=== PATIENT | female | born 1990 | race African-American/Black ===

== ENCOUNTER 2020-09-23 17:11 | Emergency (ER) | payer OTHER ==
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
[2020-09-23 18:34] LABS: APPEARANCE,URINE SLIGHTLY-CLOUDY; BILIRUBIN,URINE NEGATIVE (NEGATIVE); COLOR,URINE YELLOW; GLUCOSE, URINE NEGATIVE (NEGATIVE); KETONES,URINE NEGATIVE (NEGATIVE); LEUKOCYTE ESTERASE,URINE TRACE (NEGATIVE); NITRITE,URINE NEGATIVE (NEGATIVE); PROTEIN,URINE NEGATIVE (NEGATIVE); URINE SPECIFIC GRAVITY 1.026
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
[2020-09-24] MEDS ORDERED: NORMAL SALINE 1000 ML 1,000 ML IV ONE (00:18)
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
[2020-09-24 01:04] LABS: ABSOLUTE EOSINOPHILS # (AUTO) 0.3 10^3/uL (0.0-0.6); ABSOLUTE LYMPHOCYTES (AUTO) 2.1 10^3/uL (0.5-4.7); ABSOLUTE MONOCYTES (AUTO) 0.8 10^3/uL (0.1-1.4); ABSOLUTE NEUT (AUTO) 4.9 10^3/uL (1.7-8.2); BASOPHILS % (AUTO) 0.1 % (0-2); EOSINOPHILS % (AUTO) 3.3 % (0-6); HEMATOCRIT 40.1 % (36.0-47.0); HEMOGLOBIN 14.1 g/dL (12.0-15.5); LYMPHOCYTES % (AUTO) 26.1 % (13-45); MEAN CORPUSCULAR HEMOGLOBIN 32.4 pg (27.0-33.4); MEAN CORPUSCULAR HGB CONC 35.1 g/dL (32.0-36.0); MEAN CORPUSCULAR VOLUME 92 fl (80-97); MONOCYTES % (AUTO) 9.7 % (3-13); PLATELET COUNT 149 10^3/uL (150-450); RED BLOOD COUNT 4.35 10^6/uL (3.72-5.28); RED CELL DISTRIBUTION WIDTH 13.9 % (11.5-14.0); SEGMENTED NEUTROPHILS % (AUTO) 60.8 % (42-78); TOTAL CELLS COUNTED % (AUTO) 100 %; WHITE BLOOD COUNT 8.1 10^3/uL (4.0-10.5)
[2020-09-24 01:19] LABS: ALBUMIN 3.8 g/dL (3.5-5.0); ALKALINE PHOSPHATASE 80 U/L (38-126); ANION GAP 9 (5-19); ASPARTATE AMINO TRANSFERASE 29 U/L (14-36); BILIRUBIN,DIRECT 0.1 mg/dL (0.0-0.4); BLOOD UREA NITROGEN 6 mg/dL (7-20); CALCIUM 9.1 mg/dL (8.4-10.2); CARBON DIOXIDE 24 mmol/L (22-30); CHLORIDE 103 mmol/L (98-107); GLUCOSE 86 mg/dL (75-110); POTASSIUM 3.7 mmol/L (3.6-5.0); TOTAL PROTEIN 7.1 g/dL (6.3-8.2)
[2020-09-24] MEDS ORDERED: ACETAMINOPHEN 325 MG TABLET PO ONE (01:38)
[2020-09-24] MEDS ORDERED: ACETAMINOPHEN 325 MG TABLET ONE (02:10)
[2020-09-24 02:59] VITALS: BP 122/62
== END 2020-09-24 02:55 | disposition home or self-care (01) ==
LOC: ER 17:11
DX: O99.892 Other specified diseases and conditions complicating childbirth (principal); M54.5 Low back pain; O26.892 Other specified pregnancy related conditions, second trimester; R10.30 Lower abdominal pain, unspecified; V44.5XXA Car driver injured in collision with heavy transport vehicle or bus in traffic accident, initial encounter; O26.872 Cervical shortening, second trimester; Z79.899 Other long term (current) drug therapy; Z3A.21 21 weeks gestation of pregnancy
CPT/HCPCS: 99285; 96360; 36415; 85025; 80053; 81001; 76805; 93976; J7030

== ENCOUNTER 2020-09-24 02:17 | Outpatient (CLI) | payer OTHER | END 2020-09-24 07:40 | disposition home or self-care (01) | LOC: LC 02:17 | PROVIDERS: ATTEND Obstetrics & Gynecology | DX: Z04.1 Encounter for examination and observation following transport accident (principal); Z3A.21 21 weeks gestation of pregnancy | CPT/HCPCS: 94760 ==